=== PATIENT | female | born 2000 | race African-American/Black ===

== ENCOUNTER 2022-05-01 16:51 | Emergency (ER) | payer OTHER ==
[~2022-05-01] VITALS: Ht 165.1 cm; Wt 82.0 kg
[2022-05-01] MEDS ORDERED: AMOXICILLIN/POTASSIUM CLAVULANATE 875/125MG TAB PO ONE (20:15)
[2022-05-01] MEDS ORDERED: ACETAMINOPHEN 325MG TABLET PO ONE (20:15)
[2022-05-01] MEDS ORDERED: IBUPROFEN 400MG TABLET PO ONE (20:15)
[2022-05-01] MEDS ORDERED: AMOX1TAB16 MT (20:16)
[2022-05-01] MEDS ORDERED: TOPUD PO (20:16)
[2022-05-01] MEDS ORDERED: IBUP-2028 MT (20:16)
[2022-05-01] MEDS ORDERED: AMOXICILLIN/POTASSIUM CLAVULANATE 875/125MG TAB PO NR (20:45)
[2022-05-01 21:06] VITALS: BP 111/67
== END 2022-05-01 21:07 | disposition home or self-care (01) ==
LOC: ER 16:51
DX: K02.9 Dental caries, unspecified (principal); K04.7 Periapical abscess without sinus
CPT/HCPCS: 99284